=== PATIENT | female | born 1965 | race Caucasian/White ===

== ENCOUNTER → 2020-11-10 | Outpatient (CLI) | payer BC ==
[~2020-11-10] MED LIST: ALBU2.5V8 IH; ASPI1TAB31 PO; BIOT25006 PO; CYAN25008 PO; ESTR1PAT51 TP; GABA-585 PO; IOHEXOL 180 MG/ML 10 ML VIAL. ONE; LEVO137T3 PO; LEVO5TAB29 PO; LIFITEGRAST; LISI-517 PO; MELA10TA PO; MELO15TA23 PO; META-21 PO; MONT10TA49 PO; MULT-245 PO; NAPR1TAB25 PO; OMEP20CA16 PO; RIZA10TA PO; Vit E; methylPREDNISolone ACETATE 40 MG/ML VIAL. ONE; methylPREDNISolone ACETATE 80 MG/ML VIAL. ONE
--- NOTE | 2020-11-10 12:35 | PDOC1 ---
INITIAL PAIN CONSULT DATE OF SERVICE: DOS: DATE: 11/10/20 TIME: 12:30 CHIEF COMPLAINT: Chief Complaint: Low back and right lower extremity pain HISTORY OF PRESENT ILLNESS: 55-year-old history of pain low back right lower extremity for about 1 year without the result of any specific injury or accident that she is aware but getting worse over time with walking standing changing positions especially becoming more noticeable. Patient reports is better with sitting or laying down has been waking from sleep release once or twice a night is not effective bowel bladder control does affect her ability to walk fairly significantly she does not use any assistive devices to ambulate. Patient reports the pain is in the low back and the right lower extremity posterior gluteus posterior lateral thigh lateral anterior thigh anteromedial thigh medial and lateral aspect of the calf posterior calf anterior calf and the top of the foot but less on the sole of the foot. Patient reports constant sharp throbbing shooting with numbness and tingling in the right leg radiating changes with activity worse with walking and standing once again burning and cramping in the back aching in the back as well as shooting in the right leg. Patient ports no symptoms in the left leg no overt motor loss but significant fatigability of the right lower extremity with all activities even standing or walking more than about 10 minutes. Patient has chiropractic treatment and is currently undergoing this as well which does help but only temporarily. Patient is tried Aleve as well as gabapentin Skelaxin Mobic and Valium all of which help but only minimally. Patient rates her disability rating 0-10 10 being the worst is a 7 with family home responsibilities recreation social activity and self-care 9 with occupation 8 with sexual behavior and 5 with low support activities. Patient have a MRI scan of the lumbar spine showing degenerative changes most notable L4-5 and L5-S1 with diffuse disc bulging lateral recess narrowing greater on the right at L4-5 with foraminal narrowing moderate also L5-S1 shows moderate to severe bilateral foraminal narrowing with right lateral recess narrowing. PAST MEDICAL HISTORY: PMH: Hearing loss, shortness of breath, hypertension, arthritis, gastroesophageal reflux, sleep apnea PREVIOUS SURGERIES: Past Surgical Hx: Hysterectomy, left wrist fracture, tonsillectomy, cholecystectomy, appendectomy, tympanoplasty, right wrist fracture CURRENT MEDICATIONS: Current Meds: Active Scripts Medications Dose Route/Sig Max Daily Dose Days Date Category Excedrin Migraine Caplet (Aspirin/Acetaminophen/Caffeine) 1 Each Tablet 1 Each PO PRN PRN 11/10/20 Reported Biotin 2,500 Mcg Capsule 2,500 Mcg PO DAILY 11/10/20 Reported Vitamin B12 (Cyanocobalamin (Vitamin B-12)) 2,500 Mcg Tablet Unknown Dose PO DAILY 11/10/20 Reported [Vit E] DAILY 11/10/20 Reported Multi Vitamin Daily (Multivitamin) 1 Each Tablet 1 Tab PO DAILY 30 11/10/20 Reported Proair Hfa (Albuterol Sulfate) 8.5 Gm Hfa.aer.ad 2 Puff IH PRN Q4-6HRS PRN 21 11/10/20 Reported Skelaxin (Metaxalone) 800 Mg Tablet 800 Mg PO PRN PRN 11/10/20 Reported Maxalt (Rizatriptan Benzoate) 10 Mg Tablet 5 Mg PO PRN PRN 11/10/20 Reported [xidra eye drops] PRN 11/10/20 Reported Aleve Pm Caplet (Naproxen Na-Diphenhydramin HCl) 1 Each Tablet 1 Each PO PRN PRN 11/10/20 Reported Omeprazole 20 Mg Capsule.dr 1 Cap PO DAILY 11/10/20 Reported Climara Pro Patch (Estradiol/Levonorgestrel) 1 Each Patch.tdwk 1 Patch TP Q3DAYS 28 11/10/20 Reported Meloxicam 15 Mg Tablet 1 Tab PO DAILY 30 11/10/20 Reported Xyzal (Levocetirizine Dihydrochloride) 5 Mg Tablet 1 Tab PO DAILY 30 11/10/20 Reported Montelukast Sodium Tablet (Montelukast Sodium) 10 Mg Tablet 10 Mg PO HS 11/10/20 Reported Gabapentin (Gabapentin) 100 Mg Capsule 100 Mg PO HS 11/10/20 Reported Melatonin 10 Mg Tablet 10 Mg PO HS 11/10/20 Reported Lisinopril 5 Mg Tablet 1 Tab PO DAILY 11/10/20 Reported Levothyroxine Sodium 137 Mcg Tablet 1 Tab PO DAILY 11/10/20 Reported ALLERGIES; Allergies: Coded Allergies: cephalexin (Verified Allergy, Intermediate, Rash, 11/10/20) miconazole (Verified Allergy, Intermediate, 11/10/20) acetaminophen (Verified Adverse Reaction, Intermediate, Nausea and Vomiting, 11/10/20) codeine (Verified Adverse Reaction, Intermediate, Nausea and Vomiting, 11/10/20) erythromycin base (Verified Adverse Reaction, Intermediate, Nausea and Vomiting, 11/10/20) hydrocodone (Verified Adverse Reaction, Intermediate, Nausea and Vomiting, 11/10/20) FAMILY HISTORY: Family Hx: Celiac disease, circulatory disorders SOCIAL HISTORY: Social Hx: Patient drinks alcohol 1-2 drinks a year, does not smoke not use any illegal illicit recreational drugs is lives locally in [facility] and works as a registered nurse REVIEW OF SYSTEMS: ROS: Positive for those items mentioned in history of present illness, all systems are reviewed, otherwise negative, is complete full and well-documented on patient's chart. PHYSICAL EXAM: VS: Blood pressure is 140/96 pulse 59 respirations 20 temperature 97.8 was Fahrenheit height is 5 foot 7 inches weight is 232 pounds PE: PHYSICAL EXAMINATION: GENERAL: The patient is awake, alert, oriented, appropriate, very pleasant demeanor HEENT: Shows normocephalic, atraumatic. Extraocular movements are intact and symmetrical. Oral cavity: Mucous membranes moist and pink. Dentition is intact. NECK: Shows anterior throat supple without palpable lymphadenopathy noted. Swallow reflex symmetrical. CHEST: Shows normal on inspection. Breath sounds are clear bilaterally, distant but no rales rhonchi or wheezes auscultated. HEART: Shows S1, S2 clear. No murmurs auscultated. ABDOMEN: Soft, nontender, nondistended, obese. No palpable organomegaly is noted. No rebound or guarding demonstrated. BACK: Shows spine grossly in the midline. Normal-appearing cervical lordotic curvature. There is increased thoracic kyphosis, some flattening of the lumbar lordotic curvature. Lumbar paraspinous muscles show symmetrical on inspection, on palpation shows some moderate tenderness diffusely throughout the upper, middle and lower distribution of the paraspinous muscles bilaterally and also into the lower thoracic paraspinous musculature, firm and tender, but without specific trigger points, without radiation of pain. The patient has good rotational motion of the lumbar spine, both laterally as well as extension and flexion without significant difficulty. No tenderness over the spinous processes, sacrum or sacroiliac regions. EXTREMITIES: Lower extremities show deep tendon reflexes 2+ in the patellar and tendo calcaneus tendons. Motor exam is 4 on a scale of 5 with right dorsiflexi on, extension, quadriceps and hamstring flexion and 5/5 on the left. Peripheral pulses are 1+ posterior tibial. No peripheral edema is noted bilaterally. Lower extremities are warm and dry to touch, equal in color and appearance. Straight leg raise noted to be positive on the right about 35 degrees, left side is negative. Gaenslen's and Ezra's maneuvers are negative bilaterally. The patient is able to stand, stand without significant difficulty or loss of balance, walks with a normal-appearing gait does not appear to favor the right or left lower extremity significantly for short distance in the office today and does not use any assistive devices such as canes or walkers to ambulate. SKIN: Shows warm and dry, good turgor. No edema. No sores, rashes or bruising throughout. IMPRESSION: Impression: 55-year-old female with 1 year history low back right lower extremity pain in a radicular fashion MRI scan lumbar spine as noted Obesity Arthritis Hypertension Plan: Options were discussed with the patient including conservative medical management physical therapies interventional techniques. Patient would like to pursue interventional techniques. We discussed a lumbar epidural steroid injection using description as well as anatomical models to describe the procedure. Risks were discussed including but not limited to: Bleeding, infection, possibility of epidural hematoma and subsequent neurological compromise, dural puncture, headaches, spinal cord and/or nerve damage, side effects of steroid medication, and poor results regarding pain control. Patient understands wished to proceed. Patient will return to clinic in approximately 2 weeks for follow-up, was counseled as return appointment activity level, and side effects to be aware of. Procedure is lumbar epidural steroid injection under local anesthetic using sterile prep and drape at the L4-5 level using C-arm fluoroscopic guidance in both AP and lateral views medications injected is 120 mg Depo-Medrol + 10 mL preservative-free normal saline and 2 mL contrast- condition at discharge is stable patient tolerated procedure well had no complications. EVERARDO TIMMONS MD Nov 10, 2020 12:35
== END | disposition home or self-care (01) ==
LOC: PNCL 08:56
PROVIDERS: ATTEND Anesthesiology
DX: M54.16 Radiculopathy, lumbar region (principal); I10 Essential (primary) hypertension; M19.90 Unspecified osteoarthritis, unspecified site; K21.9 Gastro-esophageal reflux disease without esophagitis; G47.33 Obstructive sleep apnea (adult) (pediatric); E66.9 Obesity, unspecified; E03.9 Hypothyroidism, unspecified; Z90.710 Acquired absence of both cervix and uterus; Z90.49 Acquired absence of other specified parts of digestive tract; Z98.890 Other specified postprocedural states; Z79.899 Other long term (current) drug therapy; Z88.8 Allergy status to other drugs, medicaments and biological substances; Z88.1 Allergy status to other antibiotic agents; Z82.49 Family history of ischemic heart disease and other diseases of the circulatory system; Z68.36 Body mass index [BMI] 36.0-36.9, adult
CPT/HCPCS: 62323; J1030; J1040; Q9965

== ENCOUNTER → 2020-12-08 | Outpatient (CLI) | payer BC ==
--- NOTE | 2020-12-08 10:31 | PDOC ---
Progress Note - Pain Clinic Date of Service: DOS: DATE: 12/08/20 TIME: 10:27 Diagnosis: Dx: Lumbar radiculopathy with lumbar degenerative disc disease History or Present Illness: HPI: 55-year-old female returns for follow-up status post lumbar epidural steroid injection x1. Patient reports the percent improvement for the first few days the pain began to return gradually after that that when the low back and the right lower extremity posterior gluteus posterior lateral thigh lateral anterior thigh anterior medial thigh medial lower leg as well as the lateral lower leg on the right side only. Patient reports an 8 on scale 10 is worse over the past week 6 on average 0 its least is a 6 today patient was aching and shooting tingling cramping in the back with radiating pain in the right leg. Patient reports still worse with walking and standing initially she was doing much better with distance walking and doing household activities travel with greater ease and comfort reports that she forgot she had the pain for few days and then it began to return. Patient reports generally does not awaken her from sleep at night better with sitting or laying down. Patient reports no new motor or sensory deficits no bowel or bladder incontinence or other complaints. Physical Exam: VS: Blood pressure is 140/94 pulse 59 respiration 16 temperature is 98.3 F and weight is 231 pounds PE: PHYSICAL EXAMINATION: GENERAL: The patient is awake, alert, oriented, appropriate, very pleasant demeanor HEENT: Shows normocephalic, atraumatic. Extraocular movements are intact and symmetrical. NECK: Shows anterior throat supple without palpable lymphadenopathy noted. Swallow reflex symmetrical. CHEST: Shows normal on inspection. Breath sounds are clear bilaterally. HEART: Shows S1, S2 clear. No murmurs auscultated. ABDOMEN: Soft, nontender, nondistended, obese. No palpable organomegaly is noted. BACK: Shows spine grossly in the midline. Normal-appearing cervical lordotic curvature. There is slightly increased thoracic kyphosis, some flattening of the lumbar lordotic curvature. Lumbar paraspinous muscles show symmetrical on inspection, on palpation shows some moderate tenderness diffusely throughout the upper, middle and lower distribution of the paraspinous muscles, but without specific trigger points, without radiation of pain. The patient has good rotational motion of the lumbar spine, both laterally as well as extension and flexion without significant difficulty. No tenderness over the spinous processes, sacrum or sacroiliac regions. EXTREMITIES: Lower extremities show deep tendon reflexes 2+ in the patellar and tendo calcaneus tendons. Motor exam is 4 on a scale of 5 with right dorsiflexion, extension, quadriceps and hamstring flexion and 5/5 on the left. Peripheral pulses are 1+ posterior tibial. No peripheral edema is noted bilaterally. Lower extremities are warm and dry to touch, equal in color and appearance. SKIN: Shows warm and dry, good turgor. No edema. No sores, rashes or bruising throughout. Procedure: Procedure: Options were discussed with the patient. Patient will chart reviews her current medication regimen updated current review of systems updated today as well. We will proceed with a second in the series lumbar epidural steroid traction today with fluoroscopic guidance. Risks were discussed including but not limited to: Bleeding, infection, possibility of epidural hematoma and subsequent neurological compromise, dural puncture, headaches, spinal cord and/or nerve damage, side effects of steroid medication, and poor results regarding pain control. Patient understands and wished to proceed. Patient will return to the clinic in approximate 2 weeks for follow-up, was counseled as to return sydnee ointment activity level and side effects to be aware of. Medication Injected: Med Injected: Procedure is lumbar epidural steroid injection under local anesthetic using sterile prep and drape at the L4-5 level using C-arm fluoroscopic guidance in both AP and lateral views medications injected is 120 mg Depo-Medrol + 10 mL preservative-free normal saline and 2 mL contrast- condition at discharge is stable patient tolerated procedure well had no complications. Condition at Discharge: Condition at Discharge: Condition at discharge is stable, patient alert the procedure well and had no complications. EVERARDO TIMMONS MD Dec 08, 2020 10:31
== END | disposition home or self-care (01) ==
LOC: PNCL 09:32
PROVIDERS: ATTEND Anesthesiology
DX: M51.16 Intervertebral disc disorders with radiculopathy, lumbar region (principal); Z79.82 Long term (current) use of aspirin; Z79.899 Other long term (current) drug therapy; Z98.890 Other specified postprocedural states; Z88.1 Allergy status to other antibiotic agents; Z88.5 Allergy status to narcotic agent; Z88.8 Allergy status to other drugs, medicaments and biological substances
CPT/HCPCS: 62323; J1030; J1040; Q9965